=== PATIENT | male | born 1945 | race Caucasian/White ===

== ENCOUNTER 2020-09-07 13:11 | Outpatient (RCR) | payer MEDICARE, SELFPAY | END 2020-09-07 23:59 | LOC: IMMUN 13:11 | PROVIDERS: PCP Family Medicine; Referring Provider Family Medicine; Visit Provider Family Medicine | DX: Z23 Encounter for immunization (principal) | CPT/HCPCS: 0011A; 0012A; 91301 ==

== ENCOUNTER 2021-03-08 13:04 | Day surgery (SDC) | payer MEDICARE, SELFPAY ==
[2021-03-08] VITALS (10 sets, daily range): BP systolic 149–189; BP diastolic 81–116; PULSE 64–77; RESP 16; TEMP 36.2–37.1; O2SAT 93–100; BMI 25.9
[2021-03-08] MEDS: Lactated Ringers 1,000 ML 100 ML IV ×2 (13:50→16:55)
[2021-03-08] MEDS: Cefazolin 2 GM in 0.9% Normal Saline 100 ML IV (15:44)
[2021-03-08] MEDS: Ketorolac 15 MG/ML Vial IV (16:55)
--- NOTE | 2021-03-08 16:57 | PCM.HP.STD ---
HPI - General HPI Narrative STEVEN ALFARO, is a 75 M who presents for laser the stone in the left kidney in the left proximal ureter PFSH Medical History (Updated 03/08/21 @ 16:[address] Slade Huston MD) Alcohol use Cardiology follow-up encounter Easy bruising Excessive bleeding Heartburn High cholesterol History of echocardiogram History of irregular heartbeat History of stress test History of ulceration Hypertension Migraine headache Non-smoker Syncope Wears glasses Home Medications DHEA 50 mg PO DAILY 03/07/21 [History Last Taken Unknown] amlodipine 5 mg PO DAILY 03/07/21 [History Last Taken Unknown] aspirin 81 mg PO DAILY 03/07/21 [History Last Taken 03/05/21] cholecalciferol (vitamin D3) [Vitamin D3] 125 mcg PO DAILY 03/07/21 [History Last Taken Unknown] coenzyme Q10 [CoQ-10] 100 mg PO DAILY 03/07/21 [History Last Taken Unknown] hydrocodone-acetaminophen 1 tab PO Q6H PRN PRN 03/07/21 [History Last Taken Unknown] losartan 100 mg PO DAILY 03/07/21 [History Last Taken 03/08/21 08:00] multivitamin 1 tab PO DAILY 03/07/21 [History Last Taken Unknown] omega-3 fatty acids 2,500 mg PO BID 03/07/21 [History Last Taken Unknown] red yeast rice 600 mg PO BID 03/07/21 [History Last Taken Unknown] saw palmetto 160 mg PO DAILY 03/07/21 [History Last Taken Unknown] ciprofloxacin HCl [Cipro] 500 mg PO BID #10 tab 03/08/21 [Rx Last Taken Unknown] oxycodone-acetaminophen 1 tab PO Q4H PRN 7 Days #14 tab 03/08/21 [Rx Last Taken Unknown] phenazopyridine [Pyridium] 100 mg PO TID PRN #14 tab 03/08/21 [Rx Last Taken Unknown] tamsulosin 0.4 mg PO QHS #14 cap 03/08/21 [Rx Last Taken Unknown] Allergy/AdvReac Type Severity Reaction Status Date / Time Sulfa (Sulfonamide Allergy NEEDS Verified 03/07/21 09:13 Antibiotics) FOLLOW-UP Surgical History (Updated 03/07/21 @ 09:27 by Fiona Roberson) Hx of appendectomy Hx of hernia repair Social History Smoking Status: Never smoker Vital Signs Vital Signs Vital Signs: 03/08/21 13:35 Temperature 98.7 F Temperature Source Temporal Pulse Rate 73 Respiratory Rate 16 Respiratory Pattern Normal Blood Pressure 149/81 H Blood Pressure Mean 103 Blood Pressure Source Monitor Blood Pressure Position Semi-Fowlers Blood Pressure Location Right Arm Pulse Ox 100 Oxygen Delivery Method Room Air Weight Weight: 68.6 kg Body Mass Index (BMI) 25.9 Physical Exam Const alert and oriented x3 General Appearance: cooperative HEENT normocephalic, head/scalp atraumatic, EAC's normal and TM's normal bilaterally Eyes PERRL and EOMs intact bilaterally Pupil: sluggish Neck no lymphadenopathy, supple and no JVD General: trachea midline Lymph Lymphatic: no lymphadenopathy noted, lymphedema and lymphadenopathy Resp normal respiratory effort, normal air movement and clear to auscultation bilaterally Cardio regular rate, regular rhythm and peripheral pulses 2+ throughout GI soft to palpation, non-tender and non-distended Extremity normal capillary refill and no clubbing, cyanosis or edema General Extremity: no tenderness to palpation of joints or extremities Skin no rashes or lesions noted General Skin Exam: turgor normal Lesions: no lesions Rashes: no rashes Neuro CN's II-XII intact bilaterally Speech: speech normal Motor Exam: strength 5/5 throughout; Negative for general weakness Psych thought process normal, cooperative and affect normal Appearance: appropriate Assessment & Plan Assessment/Plan (1) Stone in kidney:
--- NOTE | 2021-03-08 16:58 | OP.PCM_ITS ---
Report of Operation Date of Procedure: 03/08/21 Pre-Operative Diagnosis: Left ureteral and renal calculi Post-Operative Diagnosis: Same Surgery/Procedure Performed:: Cystoscopy, balloon dilation of the left ureter, left retrograde pyelogram interpretation fluoroscopic images, left ureteroscopy laser lithotripsy of ureter stone and stone in the kidney, left stent placement Description of Surgical Findings:: This is a patient who presents to the hospital for treatment for an obstructing distal ureter calculi. I discussed with the patient how the surgery would be performed and we reviewed the risks and benefits of the surgery. The risk and benefits include the risk of failure to remove the stone completely and that the patient may need multiple procedures. We discussed the risk of an infection, the risk of bleeding. We discussed the very rare risk of serious complicated injury to the ureter. The patient understands that if the stone is not able to be removed safely that we may abort the procedure and place a stent. After full discussion and all questions address with the patient the consent form was signed the side was marked appropriately and the patient was taken back to the operating room for the procedure. The patient was taken back to the operating room. After induction of anesthesia by the anesthesiology team the patient was placed in dorsolithotomy position. The genitals were prepped and draped in usual sterile fashion. I went into the bladder with a 21 [place] rigid cystourethroscope through the urethra. Upon entering the bladder I inspected the trigone the left and right ureteral orifice and the bladder itself. He had a very large obstructive prostate with very friable easy bleeding median lobe. I then cannulated the Left ureteral orifice and advanced a 0.038 Glidewire up into the kidney. Then over the Glidewire I advanced a 5 Fr Ureteral catheter and performed a retrograde pyelogram with about 10cc of contrast, to delineate the anatomy and identify the stone location. Then a ureteral balloon dilator was advanced over the wire and the distal ureter was balloon dilated with a 12 Fr x 5cm balloon dilator. After 3 minutes of dilating the ureter the balloon was backloaded off the 0.038 glidewire then the safety wire was left in place. I then placed a second 0.038 Guidewire as a working wire and over the working 0.038 guidewire I went in with a Flexible 7.9fr ureteroscope. I was able to go inside with the 7.9Fr flexible utereroscope and I pulled out the working guidewire and then through the 7.9 fr flexible ureteroscope I ascended up the ureter with direct visualization until the stone was located in the proximal ureter and kidney mid pole and upper pole, then I engaged the stone with laser lithotripsy using a 270miron laser fiber with energy setting of 6 Hertz and 0.6 J until the stone was lasered into tiny little pieces that should pass on their own. After successful laser lithotripsy of the stone and stone fragements, a retrograde pyelogram was performed with 1 0cc of contrast and no extravasation of contrast or perforation was identified in the ureter. I then backed out of the ureter left the wire in place and then over the 0.038 guidewire I placed a double coiled pigtail ureteral stent. The ureteral stent was advanced over the 0.038 guidewire under direct fluoroscopic guidance and direct cystoscopic visual guidance, once the stent was in good position I pulled the wire and the stent coiled in the kidney and bladder in good position. I then drained the patient's bladder and the cystoscope was removed and the patient was taken back to the recovery room in good position. The patient was given discharge instructions to call the office for instructions on when to come to the office to have the stent removed. Surgeon: wilfredo Type of Anesthesia: General Drains: stent left Admit VTE Documentation VTE Present on Admission: No VTE Mechan Device Prophylaxis: SCD's
--- NOTE | 2021-03-08 16:58 | PCM.DC ---
Discharge Instructions Diet Discharge Diet: No restrictions Activity Discharge Activity: Return to Normal Activity and May Not Drive (while taking narcotic pain medications.) Dressing / Incision Call your doctor if you observe: Fever of 101 or Higher Follow Up Care Please Follow Up With: Slade Huston MD When: Call [phone] for an appointment Test Results: Test results from this visit will be discussed in further detail at your follow-up appointment, if applicable. Discharge Plan Admission Primary Reason for Your Visit: urereroscopy laser stone, left side Attending Provider: Slade Huston Primary Care Provider: Chad Gordillo Instructions Patient Instructions: Treating Kidney Stones ... Discharge Orders/Prescriptions Prescriptions: New ciprofloxacin HCl [Cipro] 500 mg tablet 500 mg PO BID Qty: 10 RF: 0 oxycodone-acetaminophen 5-325 mg tablet 1 tab PO Q4H PRN (Reason: pain) 7 Days Qty: 14 RF: 0 tamsulosin 0.4 mg capsule 0.4 mg PO QHS Qty: 14 RF: 0 phenazopyridine [Pyridium] 100 mg tablet 100 mg PO TID PRN (Reason: pain) Qty: 14 RF: 0 Continued multivitamin Tablet 1 tab PO DAILY RF: 0 DHEA 50 mg Capsule 50 mg PO DAILY RF: 0 amlodipine 5 mg tablet 5 mg PO DAILY RF: 0 saw palmetto 160 mg Capsule 160 mg PO DAILY RF: 0 losartan 100 mg tablet 100 mg PO DAILY RF: 0 coenzyme Q10 [CoQ-10] 100 mg Capsule 100 mg PO DAILY RF: 0 omega-3 fatty acids Capsule 2,500 mg PO BID RF: 0 cholecalciferol (vitamin D3) [Vitamin D3] 125 mcg (5,000 unit) Tablet 125 mcg PO DAILY RF: 0 red yeast rice 600 mg Tablet 600 mg PO BID RF: 0 aspirin 81 mg Capsule 81 mg PO DAILY RF: 0 hydrocodone-acetaminophen 5-325 mg tablet 1 tab PO Q6H PRN PRN (Reason: Pain) RF: 0 Referrals / Follow Up: Slade Huston MD [STAFF PHYSICIAN] - Chad Gordillo MD [Primary Care Provider] - Disposition Disposition (needs filled in before D/C Order can be placed): Home, Self Care
--- NOTE | 2021-03-08 18:41 | SUR.PHASEI ---
PT BLADDER SCANNED FOR 698ML, DR BEYER CALLED, 18 LOWRY CATHETER ORDERED WITH 850 INITIAL OUTPUT.
== END 2021-03-08 20:04 | disposition home or self-care (01) ==
LOC: SDC 13:07 → AC 13:10
PROVIDERS: PCP Family Medicine; Referring Provider Urology; Visit Provider Urology
PROC: 0TJ98ZZ Inspection of Ureter, Via Natural or Artificial Opening Endoscopic (ICD-10-PCS; CPT 52352; principal; 2021-03-08 14:45)
DX: N20.0 Calculus of kidney (principal); E78.00 Pure hypercholesterolemia, unspecified; R12 Heartburn; I10 Essential (primary) hypertension; Z79.82 Long term (current) use of aspirin; Z79.899 Other long term (current) drug therapy
CPT/HCPCS: 00918; 52356; 76000; J7120; C1726; C1758; C1769; C2617; J2405

== ENCOUNTER 2021-07-19 11:43 | Day surgery (SDC) | payer MEDICARE, SELFPAY ==
[2021-07-19] VITALS (7 sets, daily range): BP systolic 135–180; BP diastolic 84–103; PULSE 70–89; RESP 16; TEMP 36.6–36.9; O2SAT 92–97; BMI 26.9
[2021-07-19] MEDS: Lactated Ringers 1,000 ML 15 ML IV (11:45)
--- NOTE | 2021-07-19 15:22 | PCM.HP.STD ---
HPI - General HPI Narrative STEVEN ALFARO, is a 75 M who presents right distal ureteral stone, s/p stent placement plan for treatment of stone and remove stent PFSH Medical History Alcohol use Cardiology follow-up encounter Easy bruising Excessive bleeding Heartburn High cholesterol History of echocardiogram History of irregular heartbeat History of stress test History of ulceration Hypertension Migraine headache Non-smoker Syncope Wears glasses Home Medications amlodipine 5 mg PO DAILY 03/07/21 [History Last Taken 07/19/21] aspirin 81 mg PO DAILY 03/07/21 [History Last Taken 07/12/21] cholecalciferol (vitamin D3) [Vitamin D3] 125 mcg PO DAILY 03/07/21 [History Last Taken Unknown] coenzyme Q10 [CoQ-10] 100 mg PO DAILY 03/07/21 [History Last Taken Unknown] hydrocodone-acetaminophen 1 tab PO Q6H PRN PRN 03/07/21 [History Last Taken Unknown] losartan 100 mg PO DAILY 03/07/21 [History Last Taken 07/19/21] multivitamin 1 tab PO DAILY 03/07/21 [History Last Taken Unknown] omega-3 fatty acids 2,500 mg PO BID 03/07/21 [History Last Taken Unknown] red yeast rice 600 mg PO BID 03/07/21 [History Last Taken Unknown] phenazopyridine [Pyridium] 100 mg PO TID PRN #14 tab 03/08/21 [Rx Last Taken Unknown] tamsulosin 0.4 mg PO QHS #14 cap 03/08/21 [Rx Last Taken Unknown] oxycodone-acetaminophen 1 tab PO Q4H PRN 7 Days #14 tab 07/19/21 [Rx Last Taken Unknown] sulfamethoxazole-trimethoprim [Bactrim DS] 1 tab PO BID #10 tab 07/19/21 [Rx Last Taken Unknown] Allergy/AdvReac Type Severity Reaction Status Date / Time Sulfa (Sulfonamide Allergy NEEDS Verified 07/19/21 11:44 Antibiotics) FOLLOW-UP Surgical History (Updated 07/13/21 @ 10:23 by Louise Erickson) History of cystoscopy Hx of appendectomy Hx of hernia repair Social History Smoking Status: Never smoker Vital Signs Vital Signs Vital Signs: 07/19/21 12:05 Temperature 98.4 F Temperature Source Temporal Pulse Rate 89 Respiratory Rate 16 Respiratory Pattern Normal Blood Pressure 180/103 H Blood Pressure Mean 128 Blood Pressure Source Monitor Blood Pressure Position Semi-Fowlers Blood Pressure Location Left Arm Pulse Ox 97 Oxygen Delivery Method Room Air Weight Weight: 69 kg Body Mass Index (BMI) 26.9
--- NOTE | 2021-07-19 15:22 | PCM.DC ---
Discharge Instructions Diet Discharge Diet: No restrictions Activity Discharge Activity: Return to Normal Activity and May Not Drive (while taking narcotic pain medications.) Dressing / Incision Call your doctor if you observe: Fever of 101 or Higher Follow Up Care Please Follow Up With: Slade Huston MD When: Call [phone] for an appointment Test Results: Test results from this visit will be discussed in further detail at your follow-up appointment, if applicable. Discharge Plan Admission Primary Reason for Your Visit: Right ureteroscopy laser stone and stent Attending Provider: Slade Huston Primary Care Provider: Chad Gordillo Discharge Orders/Prescriptions Prescriptions: New sulfamethoxazole-trimethoprim [Bactrim DS] 800-160 mg tablet 1 tab PO BID Qty: 10 RF: 0 oxycodone-acetaminophen 5-325 mg tablet 1 tab PO Q4H PRN (Reason: pain) 7 Days Qty: 14 RF: 0 Continued multivitamin Tablet 1 tab PO DAILY RF: 0 amlodipine 5 mg tablet 5 mg PO DAILY RF: 0 losartan 100 mg tablet 100 mg PO DAILY RF: 0 coenzyme Q10 [CoQ-10] 100 mg Capsule 100 mg PO DAILY RF: 0 omega-3 fatty acids Capsule 2,500 mg PO BID RF: 0 cholecalciferol (vitamin D3) [Vitamin D3] 125 mcg (5,000 unit) Tablet 125 mcg PO DAILY RF: 0 red yeast rice 600 mg Tablet 600 mg PO BID RF: 0 hydrocodone-acetaminophen 5-325 mg tablet 1 tab PO Q6H PRN PRN (Reason: Pain) RF: 0 tamsulosin 0.4 mg capsule 0.4 mg PO QHS Qty: 14 RF: 0 phenazopyridine [Pyridium] 100 mg tablet 100 mg PO TID PRN (Reason: pain) Qty: 14 RF: 0 Held aspirin 81 mg Capsule 81 mg PO DAILY RF: 0 Hold Instructions: Resume on 08/02/21. Referrals / Follow Up: Slade Huston MD [STAFF PHYSICIAN] - Chad Gordillo MD [Primary Care Provider] - Disposition Disposition (needs filled in before D/C Order can be placed): Home, Self Care
--- NOTE | 2021-07-19 15:52 | PCM.OPRPT ---
Report of Operation Date of Procedure: 07/19/21 Pre-Operative Diagnosis: right distal ureteral calculi Post-Operative Diagnosis: same Surgery/Procedure Performed:: Cystoscopy, right ureteroscopy laser lithotripsy of stone, basket of fragments, right retrograde pyelogram and interpretation fluoroscopic images no stent Description of Surgical Findings:: This is a patient who presents to the hospital for treatment for an obstructing distal ureter calculi. I discussed with the patient how the surgery would be performed and we reviewed the risks and benefits of the surgery. The risk and benefits include the risk of failure to remove the stone completely and that the patient may need multiple procedures. We discussed the risk of an infection, the risk of bleeding. We discussed the very rare risk of serious complicated injury to the ureter. The patient understands that if the stone is not able to be removed safely that we may abort the procedure and place a stent. After full discussion and all questions address with the patient the consent form was signed the side was marked appropriately and the patient was taken back to the operating room for the procedure. The patient was taken back to the operating room. After induction of anesthesia by the anesthesiology team the patient was placed in dorsolithotomy position. The genitals were prepped and draped in usual sterile fashion. I went into the bladder with a 21 [place] rigid cystourethroscope through the urethra. The prostate was very large with a very high ridig bladder neck and very obstructive large median lobe and bilateral hypertorphy. Upon entering the bladder I inspected the trigone the left and right ureteral orifice and the bladder itself. I then cannulated the Right ureteral orifice and advanced a 0.038 Glidewire up into the kidney. Then over the Glidewire I advanced a 5 Fr Ureteral catheter and performed a retrograde pyelogram with about 10cc of contrast, to delineate the anatomy and identify the stone location. Then over the working 0.038 guidewire I went in with the prashant rigide 7.5fr ureteroscope. I was able to go inside with the 7.5Fr prashant rigid utereroscope and I pulled out the working guidewire and then through the 7.5 fr simirigid ureteroscope I engage the stone in the distal ureter with laser lithotripsy using a 270miron laser fiber with energy setting of 6 Hertz and 0.6 J until the stone was lasered into tiny little pieces that should pass on their own. A retrograde pyelogram was performed with 10cc of contrast and no extravasation of contrast or perforation was identified in the ureter there was some mild irritation of the ureter where the stone was located. Basket was then used to extract the broke fragments. I then backed out of the ureter. I then drained the patient's bladder and the cystoscope was removed and the patient was taken back to the recovery room in good position. The patient was given discharge instructions to call the office for instructions on when to come to the office to have the stent removed. Surgeon: wilfredo Type of Anesthesia: General Drains: removed Admit VTE Documentation VTE Present on Admission: No VTE Mechan Device Prophylaxis: SCD's VTE Pharm Prophylaxis ordered?: No
[2021-07-19] MEDS: Ketorolac 15 MG/ML Vial IV (16:12)
[2021-07-19] MEDS: Acetaminophen 325 MG Tablet PO (17:05)
[2021-07-19] MEDS: oxyCODONE 5 MG Tablet PO (17:12)
== END 2021-07-19 23:59 | disposition home or self-care (01) ==
LOC: SDC 11:44 → AC 11:46
PROVIDERS: PCP Family Medicine; Referring Provider Urology; Visit Provider Urology
PROC: 0TJ98ZZ Inspection of Ureter, Via Natural or Artificial Opening Endoscopic (ICD-10-PCS; CPT 52352; principal; 2021-07-19 13:25)
DX: N20.1 Calculus of ureter (principal); I10 Essential (primary) hypertension; E78.00 Pure hypercholesterolemia, unspecified; Z79.82 Long term (current) use of aspirin; Z79.899 Other long term (current) drug therapy; G43.909 Migraine, unspecified, not intractable, without status migrainosus
CPT/HCPCS: 52353; 00873; 76000; J7120; C1769; J2405

== ENCOUNTER 2021-07-24 16:48 | Outpatient (CLI) | payer MEDICARE, SELFPAY | END 2021-07-24 23:59 | disposition short-term general hospital (02) | LOC: LABSPEC 16:49 | PROVIDERS: PCP Family Medicine; Visit Provider Urology | DX: N20.1 Calculus of ureter (principal) | CPT/HCPCS: 87077; 87086; 87088; 87186 ==

== ENCOUNTER → 2023-01-21 | Outpatient (CLI) | payer MEDICARE, SELFPAY | END | disposition home or self-care (01) | PROVIDERS: PCP Family Medicine; Referring Provider Urology; Visit Provider Urology | DX: R97.20 Elevated prostate specific antigen [PSA] (principal) | CPT/HCPCS: 36415; 84153 ==

== ENCOUNTER → 2024-07-20 | Outpatient (CLI) | payer MEDICARE, SELFPAY ==
--- NOTE | 2024-07-20 13:29 | CT_ITS ---
INDICATION: Other forms of angina pectoris EXAMINATION: CT CHEST WITH CONTRAST - CT Chest W/ Contrast Injection TECHNIQUE: Helically acquired images were obtained of the chest following IV contrast. A radiation dose optimization technique was used for this scan. IV Contrast dosage and agent: [id number]. COMPARISON: None. FINDINGS: LUNGS, PLEURA AND LARGE AIRWAYS: Bibasilar atelectasis worse at the right lung base. No pleural effusion or thickening. No pneumothorax. THYROID: No thyroid lesions. HEART AND PERICARDIUM: Heart size is normal. No pericardial effusion. Coronary artery calcification. VESSELS: Thoracic aorta is not dilated. No aortic dissection. Mild calcific plaque of the aortic arch. No obvious central pulmonary embolism although this study was not performed with the pulmonary embolism protocol. MEDIASTINUM AND YOLANDA: No mediastinal or hilar adenopathy. Esophagus is unremarkable. No hiatal hernia. UPPER ABDOMEN: Diffuse fatty infiltration of the liver. BONES: No suspicious lytic or blastic abnormality. CT/Limited Chest CT Cardiac Only IMPRESSION: Coronary artery calcification. Electronically Signed: Elvin Guerra MD at 12:33 EST ,
[2024-07-20 13:42] VITALS: BP 170/93; PULSE 71; RESP 16; O2SAT 97; BMI 26.6
[2024-07-20 14:05] VITALS: BP 170/93; PULSE 70
[2024-07-20] MEDS: Nitroglycerin SL (ED/IMG/CATH) 0.4 MG TABLET SL (14:05)
[2024-07-20 14:11] LABS: CREATININE FINGERSTICK < 1.0 mg/dL (0.70-1.30); EGFR FINGERSTICK > 60.0000 mL/min (>60)
[2024-07-20 14:15] VITALS: BP 160/82; PULSE 80; RESP 16; O2SAT 94
--- NOTE | 2024-07-20 16:13 | CCTA.WCONT ---
CCTA w/Cont Coronary Arteries Date of Study:: 07/20/24 CP Coronary Calcium Scoring: High-resolution Computed Tomographic imaging of the chest was performed on [07/20/24 ], with particular attention paid to the coronary arteries. Intravenous contrast agent was administered per protocol and images reconstructed and displayed. LEFT MAIN CORONARY ARTERY: This arises from the left coronary cusp and bifurcates to left anterior descending artery and circumflex artery. Mild disease only is noted. [] LEFT ANTERIOR DESCENDING CORONARY ARTERY: This arises from the left main coronary artery and there is mild eccentric proximal calcification noted. The rest of the vessel has mild diffuse luminal irregularities no high-grade stenosis is present. [] LEFT CIRCUMFLEX CORONARY ARTERY: Send nondominant vessel arising from the left main coronary artery giving off a large first obtuse marginal branch and a small AV groove branch. Mild diffuse luminal irregularities noted in the left circumflex artery. [] RIGHT CORONARY ARTERY: Dominant right coronary artery with mild diffuse disease present. No high-grade stenosis noted. Motion artifact noted in the proximal and mid segments. [] THORACIC AORTA: [] PULMONARY ARTERY: [] LEFT ATRIUM/APPENDAGE: [] MITRAL VALVE: [] AORTIC VALVE: Trileaflet with moderate calcification [] LEFT VENTRICLE: [] CORONARY CALCIUM SCORE: Not done CT angiogram demonstrating nonobstructive coronary disease noted. []
== END | disposition home or self-care (01) ==
PROVIDERS: PCP Family Medicine; Referring Provider Nurse Practitioner Family; Visit Provider Nurse Practitioner Family
DX: I20.89 Other forms of angina pectoris (principal)
CPT/HCPCS: 75574; 76380; Q9967

== ENCOUNTER → 2025-03-08 | Outpatient (CLI) | payer MEDICARE, SELFPAY ==
[2025-03-08 12:53] LABS: PSA,Total- Diagnostic 1.85 ng/mL (0.00-4.00)
== END | disposition home or self-care (01) ==
LOC: LAB 10:44
PROVIDERS: PCP Family Medicine; Referring Provider Urology; Visit Provider Urology
DX: R97.20 Elevated prostate specific antigen [PSA] (principal)
CPT/HCPCS: 36415; 84153